=== PATIENT | female | born 1975 | race African-American/Black ===

== ENCOUNTER 2020-01-14 13:03 | Inpatient (IN) | payer OTHER ==
[2020-01-14] MEDS ORDERED: Lactated Ringers 1000 ML Bag* 1,000 ML IV ONE (14:05)
[2020-01-14] MEDS ORDERED: Buffered Lidocaine 1% SYRIN* 1 ML/SYRINGE INTRADERM ONE (14:05)
--- NOTE | 2020-01-14 14:15 | HP ---
General Information - Reason for Visit Pt presents at 39+2 wks from office. Noted to have BP of 132/86 which was a significant increase from her baseline, and 1+ protein in her urine dip. Pt advised to have induction at 39 wks due to her age, but she had declined. She has no complaints today. - General Information Maternal Age: 44 Grav: 3 Para: 1 SAB: 1 IEA: 0 Estimated Due Date: 01/19/20 Determined By: Early Ultrasound Gestational Age in Weeks/Days: 39+2 Maternal Blood Type and Rh: A Positive - Results this Serology/RPR Result: Non-Reactive Rubella Result: Immune HBsAg Result: Negative HIV Result: Negative GBS Culture Result: Negative Past Medical History Delivery History: Hx Uncomplicated Vaginal Delivery - 2017 in [facility] Pertinent Past Medical History: See Records - mild migraines Pertinent Past Surgical History: See Records - none - Antepartal Records Antepartal Records: Reviewed, Complicated by: - AMA, anemia Review of Systems Constitutional: Comfortable CV Complaint: No Respiratory: Shortness of Breath: No Gastrointestinal: No Nausea/Vomiting, Normal Bowel Movement Genitourinary: No Dysuria, No Bleeding, No Leaking Fluid Musculoskeletal: No Complaint, No Epigastric Pain Neurological: No Headache, No Visual Changes Movement: Normal Exam Allergies/Adverse Reactions: Allergies No Known Allergies Allergy (Verified 01/14/20 13:48) 170-180/90s - Measurements Height: 5 ft 4 in Weight: 158 lb Weight in lbs: [id number] Body Mass Index (BMI): 27.1 Pre- Weight: 120 lb Weight Gained This : 38 lbs and 0 ozs - Exam Breast: Breast Exam Deferred CVA: No CVA Tenderness Extremities: No Edema Heart: Normal Rhythm/Heart Sounds HEENT: No Significant Findings Lungs: Clear Bilaterally Rectal: Rectal Exam Deferred - Abdominal Exam Abdomen Exam: Non-Tender, Fundal Height Consistent with Dates - Ultrasound/Biophysical Profile Ultrasound Status: Not Done Targeted Exam Findings Estimated Weight: 7 lbs Cervical Exam: 1cm - exam in office Effacement: 50% Station: -3 Presenting Part: Vertex Membrane Status: Intact Bleeding/Discharge: None EFM Findings - External Monitor Findings Baseline Heart Rate: 120 External Monitor Findings: Accelerations Present, No Pattern of Variable or Late Decelerations, Variability Moderate, Baseline Stable Contractions: Irregular, Mild Assessment/Plan - Assessment 44yo at 39+2 with severe HTN. Reassuring FHT, no s/sx of pre-eclampsia. Will send labs and recheck BP. Plan to give antihypertensive medication IV as needed to control BP. If it responds well, can consider cervical ripening and induction. - Obstetrical Risk Factors Obstetrical Risk Factors: PreEclampsia with Severe Features - Plan Plan: Mag Sulfate Plan Comment: Induction vs C/S depending on BP and labs - Date/Time of Admission Date of Admission: 01/14/20 Time of Admission: 14:00
[2020-01-14] MEDS: hydrALAZINE IV* 20 MG/ML VIAL IV SLOW PU ONE ×2 (14:45→16:40)
[2020-01-14 14:48] LABS: ABS Lymphocytes 1.3 10^3/ul (1.0-4.8); ABS Monocytes 0.5 10^3/ul (0-0.8); ABS Neutrophils 4.4 10^3/ul (1.5-7.7); Eosinophil % 0.7 %; Hematocrit 37 % (35-47); Hemoglobin 12.5 g/dL (12.0-16.0); Lymphocyte % 20.5 %; Mean Corpuscular HGB Conc 34 g/dL (31-36); Mean Corpuscular Hemoglobin 30 pg (27-31); Mean Corpuscular Volume 88 fL (80-97); Mean Platelet Volume 8.9 fL (7.4-10.4); Nucleated Red Blood Cells % 0.1; Platelet Count 173 10^3/uL (150-450); Red Blood Count 4.19 10^6 /uL (3.70-4.87); Red Cell Distribution Width 15 % (10-15); White Blood Count 6.2 10^3/uL (3.5-10.8)
[2020-01-14 14:49] LABS: Urine Benzodiazepine Screen None Detected (None Detect); Urine Opiates Screen None Detected (None Detect)
[2020-01-14] MEDS ORDERED: Lactated Ringers 1000 ML Bag* 1,000 ML IV SCH ×2 (15:00→21:00)
[2020-01-14 15:06] LABS: Albumin 3.4 g/dL (3.2-5.2); Albumin/Globulin Ratio 1.2 (1-3); BUN/Creatinine Ratio 12.9 (8-20); Calcium 8.6 mg/dL (8.6-10.3); EGFR African American 127.1 (>60); EGFR Non-African American 105.1 (>60); Globulin 2.8 g/dL (2-4); Potassium 3.6 mmol/L (3.5-5.0); Total Bilirubin 0.4 mg/dL (0.2-1.0); Total Protein 6.2 g/dL (6.4-8.9); Uric Acid 4.6 mg/dL (2.3-6.6)
[2020-01-14] MEDS ORDERED: Misoprostol TAB* 100 MCG VAGINAL ONE (15:25)
--- NOTE | 2020-01-14 15:33 | PN ---
Progress Note - Progress Note Date of Service: 01/14/20 SOAP: Subjective: Pt at 39 wks with high normal BP in office and +1 protein in urine dip. Admitted for labor induction, especially considering age 44. Objective: On admission, BP ranged 170s-180s/90s with multiple cuffs and different machines. Pt reported having some anxiety but appeared calm. FHT Category 1 Laboratory Results - last 24 hr 01/14/20 01/14/20 01/14/20 14:05 14:05 14:05 WBC 6.2 RBC 4.19 Hgb 12.5 Hct 37 MCV 88 MCH 30 MCHC 34 RDW 15 Plt Count 173 MPV 8.9 Neut % (Auto) 71.2 Lymph % (Auto) 20.5 [place] % (Auto) 7.2 Eos % (Auto) 0.7 Baso % (Auto) 0.4 Absolute Neuts (auto) 4.4 Absolute Lymphs (auto) 1.3 Absolute Monos (auto) 0.5 Absolute Eos (auto) 0.0 Absolute Basos (auto) 0.0 Absolute Nucleated RBC 0.0 Nucleated RBC % 0.1 Sodium 135 Potassium 3.6 Chloride 104 Carbon Dioxide 22 Anion Gap 9 BUN 8 Creatinine 0.62 Est GFR ( Amer) 127.1 Est GFR (Non-Af Amer) 105.1 BUN/Creatinine Ratio 12.9 Glucose 74 Uric Acid 4.6 Calcium 8.6 Total Bilirubin 0.40 AST 19 ALT 18 Alkaline Phosphatase 135 H Total Protein 6.2 L Albumin 3.4 Globulin 2.8 Albumin/Globulin Ratio 1.2 Urine Opiates Screen Ur Barbiturates Screen Ur Phencyclidine Scrn Ur Amphetamines Screen U Benzodiazepines Scrn Urine Cocaine Screen U Cannabinoids Screen Blood Type A Positive Antibody Screen Negative 01/14/20 14:29 WBC RBC Hgb Hct MCV MCH MCHC RDW Plt Count MPV Neut % (Auto) Lymph % (Auto) [place] % (Auto) Eos % (Auto) Baso % (Auto) Absolute Neuts (auto) Absolute Lymphs (auto) Absolute Monos (auto) Absolute Eos (auto) Absolute Basos (auto) Absolute Nucleated RBC Nucleated RBC % Sodium Potassium Chloride Carbon Dioxide Anion Gap BUN Creatinine Est GFR ( Amer) Est GFR (Non-Af Amer) BUN/Creatinine Ratio Glucose Uric Acid Calcium Total Bilirubin AST ALT Alkaline Phosphatase Total Protein Albumin Globulin Albumin/Globulin Ratio Urine Opiates Screen None detected Ur Barbiturates Screen None detected Ur Phencyclidine Scrn None detected Ur Amphetamines Screen None detected U Benzodiazepines Scrn None detected Urine Cocaine Screen None detected U Cannabinoids Screen None detected Blood Type Antibody Screen Assessment/Plan: Considering the severe range BPs, pt given one dose of hydralazine 5mg IV. BPs decreased to 150's/90s for the next 40 min. Pt's labs are all completely normal. Since blood pressure improved with a single dose of medication, will continue with plan for induction. Pt and aware if BP becomes difficult to manage at any point, I may recommend C/S to expedite delivery. Will also need to consider Magnesium Sulfate if BP is severely elevated again.
[2020-01-14] MEDS ORDERED: Magnesium Sulf 4 GM/100 ML IV* 4,000 MG/100 ML BAG IVPB ONE ×2 (16:40→16:47)
[2020-01-14] MEDS ORDERED: hydrALAZINE IV* 20 MG/ML VIAL IV SLOW PU ONE (16:40)
[2020-01-14] MEDS ORDERED: Magnesium Sulfate OB PREMIX* 40 GM/1,000 ML BAG ONE (16:47)
[2020-01-14] MEDS ORDERED: Magnesium Sulfate OB PREMIX* 40 GM/1,000 ML BAG IVPB SCH (17:00)
--- NOTE | 2020-01-14 17:00 | PN ---
Progress Note - Progress Note Date of Service: 01/14/20 Note: Pt s/p hydralazine 5mg IV x 1, had improvement of BP to 150s/90s. After about an hour, it had returned to the 170-180s/90s. We had a long discussion about her current situation. She appears to have had a rapid change in her blood pressure, even in the past few hours when she was in the office. She has no sx of severe pre-eclampsia, and her labs are currently normal, however I do have concerns about an induction since her cervix is only 1cm dilated. We will give another dose of hydralazine and start MgSO4 for seizure prophylaxis. Pt and understand that delaying delivery could result in worsening of her disease, seizure, and/or stress to the baby. They are discussing now.
[2020-01-14] MEDS ORDERED: ceFOXitin 2 GM IVPREMIX* 2 GM/50 ML BAG IVPB ONE (17:25)
--- NOTE | 2020-01-14 17:29 | PN ---
Progress Note - Progress Note Date of Service: 01/14/20 Note: BP responded well to another dose of hydralazine with BP now 140s/70s. FHR Cat I with accels. After discussion, pt and have decided they are comfortable with proceeding with a C/S. I think that is the safest option at this time. We discussed the surgery and risks at length, including bleeding, transfusion, infection, organ injury, etc.. All questions answered, and consent signed.
[2020-01-14] MEDS ORDERED: ceFOXitin 2 GM IVPREMIX* 2 GM/50 ML BAG ONE (17:35)
[2020-01-14] MEDS ORDERED: Sodium Citrate/Citric Acid* 15 ML UDC ONE (18:30)
[2020-01-14] MEDS ORDERED: Morphine PF AMP (0.5MG/ML)* 5 MG/10 ML AMP ONE (18:36)
[2020-01-14] MEDS ORDERED: OXYTOCIN* 10 UNITS/ML 1 ML VIAL ONE (19:37)
[2020-01-14] MEDS ORDERED: Ondansetron INJ* 2 MG/ML VIAL ONE ×2 (19:46→19:48)
[2020-01-14] MEDS ORDERED: Ketorolac INJ* 30 MG/ML 1 ML VIAL ONE (19:48)
[2020-01-14] MEDS ORDERED: Ondansetron INJ* 2 MG/ML VIAL IV PRN (19:55)
[2020-01-14] MEDS ORDERED: HYDROcodone/ACETAMIN 5-325 MG* 1 TAB PO PRN (19:55)
[2020-01-14] MEDS ORDERED: Nalbuphine* 10 MG/ML 1 ML VIAL IV PRN (19:55)
[2020-01-14] MEDS ORDERED: Naloxone* 0.4 MG/ML 1 ML VIAL IV PRN (19:55)
[2020-01-14] MEDS ORDERED: Acetaminophen TAB* 325 MG PO PRN (19:55)
[2020-01-14] MEDS ORDERED: fentaNYL* 50 MCG/ML 2 ML VIAL (100 MCG VIAL) ONE (19:57)
[2020-01-14] MEDS ORDERED: Witch Hazel PAD* JAR TOPICAL PRN (20:24)
[2020-01-14] MEDS ORDERED: Oxytocin in LR* 20 UNITS/1,000 ML BAG IVPB ONE (20:35)
[2020-01-14] MEDS ORDERED: Ibuprofen TAB* 600 MG PO SCH (21:00)
[2020-01-15] MEDS: Simethicone TAB* 80 MG TAB.CHEW PO SCH ×5 (01:33→23:21)
[2020-01-15] MEDS: Docusate CAP* 100 MG PO SCH ×4 (01:33→20:27)
--- NOTE | 2020-01-15 02:03 | OP ---
DATE OF OPERATION: 01/14/20 - ROOM #108 DATE OF : 77 SURGEON: Santos Moreland MD BOTTLE INSPECTOR: Jessica Dos Santos CNM ANESTHESIOLOGIST: Dr. Ann Calloway. ANESTHESIA: Spinal. PRE-OP DIAGNOSIS: 39 weeks gestation, advanced maternal age and preeclampsia with severe features. POST-OP DIAGNOSIS: 39 weeks gestation, advanced maternal age and preeclampsia with severe features OPERATIVE PROCEDURE: Primary low transverse section. ESTIMATED BLOOD LOSS: 700 cc. URINE OUTPUT: 125 cc. IV FLUIDS: 3000 cc of lactated Ringer's. MATERIALS TO LAB: Cord blood. INDICATIONS: This patient was a 44-year-old 3, para 1, 0, 1, 1, who was sent to Labor and Delivery from the office today when she was noted to have 1+ protein in her urine and blood pressure in the 130s/80s, which was increased compared to her baseline. On presentation to Labor and Delivery, only about an hour later, the patient's blood pressures were persistently in the 170s to 180s/ 90s. The blood pressures were reproduced with multiple machines and on different arms with different size cuffs and appeared to be consistent. Of note , the heart tracing was extremely reassuring and the patient was not extremely anxious. The patient was given IV hydralazine to improve her severely elevated blood pressure and this initially improved into the 150s/90s. Blood tests all returned within normal limits. However, after about an hour, her blood pressure had returned to the 170s to 180s/90s and required IV medication again. Considering the patient's cervix was only about 1 cm dilated and she was going to require a fairly long induction, the decision was made after discussion to proceed with the section rather than take the risks of a prolonged labor and persistently severely elevated blood pressure requiring medication. The patient understood the risks of stroke, seizure and abruption. The patient was extensively counseled for the surgery and consent was signed. Magnesium sulfate was also started. FINDINGS: Normal appearing uterus, fallopian tubes and ovaries. Delivery is productive of a female infant weighing 7 pounds 2 ounces with Apgars of 9 and 9. Time of delivery was 1930. COMPLICATIONS: None. DESCRIPTION OF PROCEDURE: The risks, benefits, and alternatives were described to the patient and informed consent was obtained. The patient was taken to the operating room with IV running where spinal anesthesia was induced and found to be adequate. The patient was prepped and draped in the normal sterile fashion in the dorsal supine position with leftward tilt. A Pfannenstiel skin incision was made with a scalpel and this was carried down to the under-lying fascia sharply. The fascia was then scored in the midline with the scalpel. The incision was extended using [place] scissors. The rectus muscles were dissected off the rectus fascia using blunt and sharp dissection. The rectus muscles were in the midline bluntly. The peritoneum was also entered bluntly. A bladder blade was placed. A bladder flap was created sharply using Metzenbaum scissors. A low transverse uterine incision was made with the scalpel. This was carried down to the amniotic cavity which was productive of clear fluid. The incision was extended with blunt traction. The head was elevated to the level of the incision without difficulty and delivered through the incision. With fundal pressure, the shoulders and body delivered without difficulty. The had an excellent tone and cried immediately on delivery. The cord was doubly clamped and cut. The was then handed to the awaiting switchboard wire worker helper. Cord blood was collected. The placenta then delivered with manual extraction. The uterus was then exteriorized and cleared of all clots and debris. Uterine incision was reapproximated using 0 Polysorb in a running-locked fashion. A second layer of imbricating sutures of 0 Polysorb was also placed with good hemostasis. The posterior cul-de-sac was irrigated with saline. The uterus was then returned to the abdomen, and the incision was reinspected and noted to be hemostatic. The peritoneum was closed with 2-0 chromic in a running fashion. The fascia was closed with 0 Polysorb in a running fashion. Subcutaneous tissues were reapproximated using 2-0 chromic and interrupted sutures. The skin was then closed with 4-0 Monocryl in a subcuticular stitch. Mastisol and Steri-Strips were placed over the incision which was then covered with a sterile bandage. The patient tolerated the procedure well. Sponge, lap, and needle counts were correct x2. [id number]/[facility] #: [id number] MTDD
[2020-01-15] MEDS: Ketorolac INJ* 30 MG/ML 1 ML VIAL IV PRN ×2 (06:02→14:07)
[2020-01-15 06:29] LABS: ABS Lymphocytes 1.4 10^3/ul (1.0-4.8); ABS Monocytes 0.7 10^3/ul (0-0.8); ABS Neutrophils 6.6 10^3/ul (1.5-7.7); Eosinophil % 0.5 %; Hematocrit 36 % (35-47); Lymphocyte % 15.7 %; Mean Corpuscular HGB Conc 33 g/dL (31-36); Mean Corpuscular Hemoglobin 30 pg (27-31); Mean Corpuscular Volume 89 fL (80-97); Mean Platelet Volume 8.8 fL (7.4-10.4); Nucleated Red Blood Cells % 0.1; Platelet Count 177 10^3/uL (150-450); Red Blood Count 4.06 10^6 /uL (3.70-4.87); Red Cell Distribution Width 15 % (10-15); White Blood Count 8.7 10^3/uL (3.5-10.8)
[2020-01-15] MEDS ORDERED: Ferrous Gluconate TAB* 324 MG TAB PO SCH (09:00)
[2020-01-15] MEDS ORDERED: Tetan/Diph/Pertus SYR(Tdap)* 0.5 ML SYR(BOOSTRIX) use SYR contains LATEX IM ONE (09:00)
[2020-01-15] MEDS: Labetalol TAB* 100 MG PO SCH ×2 (09:03→23:21)
[2020-01-15] MEDS: oxyCODONE TAB* 5 MG TAB PO PRN ×3 (10:11→20:26)
[2020-01-15] MEDS ORDERED: Acetaminophen TAB* 325 MG PO PRN (20:25)
[2020-01-15] MEDS: Ibuprofen TAB* 600 MG PO SCH ×2 (20:26→20:27)
[2020-01-16] MEDS: Ibuprofen TAB* 600 MG PO SCH ×4 (02:31→21:36)
[2020-01-16] MEDS: oxyCODONE TAB* 5 MG TAB PO PRN ×2 (03:27→21:35)
[2020-01-16] MEDS: Labetalol TAB* 100 MG PO SCH ×2 (08:00→21:34)
[2020-01-16] MEDS: Simethicone TAB* 80 MG TAB.CHEW PO SCH ×4 (08:00→22:00)
[2020-01-16] MEDS: Docusate CAP* 100 MG PO SCH ×3 (08:00→21:35)
[2020-01-17] MEDS: Ibuprofen TAB* 600 MG PO SCH ×3 (03:30→13:07)
[2020-01-17] MEDS: oxyCODONE TAB* 5 MG TAB PO PRN ×2 (07:30→13:07)
[2020-01-17] MEDS: Docusate CAP* 100 MG PO SCH ×2 (07:30→13:07)
[2020-01-17] MEDS: Simethicone TAB* 80 MG TAB.CHEW PO SCH ×2 (07:31→12:16)
[2020-01-17] MEDS: Labetalol TAB* 100 MG PO SCH (09:03)
[2020-01-17] MEDS ORDERED: Glycerin ADULT SUPP ONE (09:05)
[2020-01-17 13:02] VITALS: BP 143/87
[2020-01-17] MEDS ORDERED: Glycerin ADULT SUPP PR ONE (13:10)
== END 2020-01-17 14:35 | disposition home or self-care (01) | DRG 788 ==
LOC: MCHOBOUT 13:03 → MCHOB 14:08
PROVIDERS: ADMIT Obstetrics & Gynecology; ATTEND Obstetrics & Gynecology
PROC: 10D00Z1 Extraction of Products of Conception, Low, Open Approach (ICD-10-PCS; principal; 2020-01-14 18:41)
DX: O14.14 Severe pre-eclampsia complicating childbirth (principal); O61.0 Failed medical induction of labor; O34.10 Maternal care for benign tumor of corpus uteri, unspecified trimester; D25.9 Leiomyoma of uterus, unspecified; Z3A.39 39 weeks gestation of pregnancy; Z37.0 Single live birth
CPT/HCPCS: 36415; 80053; 80307; 84550; 85025; 86850; 86900; 86901; 90715; A9270-GY; G0480; J0360; J0694; J1885; J2405; J2590; J3010; J3475; S0191